=== PATIENT | male | born 1990 | race Two or more races ===

== ENCOUNTER 2021-06-25 18:09 | Emergency (ER) | payer MEDICAID ==
[~2021-06-25] VITALS: Ht 188 cm; Wt 109.3 kg
[2021-06-25 18:23] VITALS: BP 150/72
--- NOTE | 2021-06-25 18:25 | NUR ---
TO ER BED 2, C/O RT KNEE PAIN S/P FALLING FROM STAIRS, A&OX4, BREATHING EVEN AND UNLABORED.
--- NOTE | 2021-06-25 18:49 | NUR ---
ACCOUNTANT AUDITOR AT BEDSIDE
--- NOTE | 2021-06-25 19:11 | NUR ---
REPORT GIVEN TO ALEJO BARRIOS FOR TREVOR
[2021-06-25] MEDS ORDERED: IBUP-1953 PO (20:10)
--- NOTE | 2021-06-25 20:15 | NUR ---
PATIENT PROVIDED WITH KNEE IMMOBILIZER AND CRUTCHES.
--- NOTE | 2021-06-25 20:25 | NUR ---
Patient discharged to home in stable condition. Written and verbal after care instructions given. Patient verbalizes understanding of instruction. Patient ambulatory with crutches.
== END 2021-06-25 20:25 | disposition home or self-care (01) ==
LOC: ER 18:12
DX: S83.8X1A Sprain of other specified parts of right knee, initial encounter (principal); X58.XXXA Exposure to other specified factors, initial encounter; Y93.89 Activity, other specified; Y92.89 Other specified places as the place of occurrence of the external cause; Y99.8 Other external cause status
CPT/HCPCS: 73564-TC; 73590-TC